=== PATIENT | male | born 1980 | race Two or more races ===

== ENCOUNTER 2023-07-20 17:38 | Inpatient (IN) | payer MEDICAID ==
[~2023-07-20] VITALS: Ht 180.3 cm; Wt 94.8 kg
[~2023-07-20 17:38] MED LIST: AMOX875T2 PO; IBUP-23 PO
[2023-07-20 18:14] LABS: BASOPHILS % (AUTO) 0.7 % (0.0-2.0); EOSINOPHILS % (AUTO) 0.2 % (0.0-6.0); HEMATOCRIT 44 % (39-51); HEMOGLOBIN 14.7 g/dL (13.5-17.5); LYMPHOCYTES % (AUTO) 17.6 % (20.0-44.0); MEAN CORPUSCULAR HEMOGLOBIN 27 PG (26.0-33.0); MEAN CORPUSCULAR HGB CONC 34 g/dl (31.0-36.0); MEAN CORPUSCULAR VOLUME 81 fL (80-96); MONOCYTES # (AUTO) 0.6 K/uL (0.1-1.30); MONOCYTES % (AUTO) 9.7 % (2.0-12.0); NEUTROPHILS # (AUTO) 4.1 K/uL (1.8-8.9); NEUTROPHILS % (AUTO) 71.8 % (43.0-81.0); PLATELET COUNT (AUTO) 146 K/uL (150-450); RED BLOOD CELL COUNT(AUTO) 5.41 MIL/uL (4.5-6.0); RED CELL DISTRIBUTION WIDTH 15.1 % (11.5-15.0); WHITE BLOOD COUNT (AUTO) 5.8 K/uL (4.3-11.0)
[2023-07-20] MEDS ORDERED: IOHEXOL-350 100 ML VIAL IV ONE (18:27)
[2023-07-20] MEDS ORDERED: IV NS 0.9% 250 ML IV ONE (18:27)
[2023-07-20 18:38] LABS: ALANINE AMINOTRANSFERASE 48 U/L (12-78); ALBUMIN 3.2 g/dL (3.4-5.0); ALKALINE PHOSPHATASE 53 U/L (46-116); ASPARTATE AMINOTRANSFERASE 26 U/L (15-37); BILIRUBIN,DIRECT 0.2 mg/dL (0.0-0.2); BILIRUBIN,TOTAL 1.1 mg/dL (0.2-1.0); CALCIUM, SERUM 8.5 mg/dL (8.5-10.1); CARBON DIOXIDE 29 mmol/L (21-32); CHLORIDE 99 mmol/L (98-107); CREATININE 1.5 mg/dL (0.6-1.3); GLUCOSE 94 mg/dL (74-106); NT-PRO BNP 864 pg/mL (0-125); POTASSIUM 3.8 mmol/L (3.5-5.1); SODIUM SERUM 136 mmol/L (136-145); TOTAL PROTEIN, SERUM 6.8 g/dL (6.4-8.2); UREA NITROGEN, BLOOD 25 mg/dL (7-18)
[2023-07-20] MEDS ORDERED: PIPERACILLIN /TAZOBACTAM 3.375 G in IV D5W 50 ML IV ONE (19:00)
[2023-07-20] MEDS ORDERED: ASPIRIN 325 MG TABLET PO ONE (19:00)
[2023-07-20] MEDS ORDERED: AZITHROMYCIN 500 MG in IV D5W 250 ML IV ONE (19:00)
[2023-07-20] MEDS ORDERED: VANCOMYCIN 1 GM in IV D5W 250 ML IV ONE (19:00)
[2023-07-20] MEDS ORDERED: ASPIRIN 325 MG TABLET ONE (19:15)
[2023-07-20] MEDS ORDERED: KETOROLAC TROMETHAMINE INJ 30 MG/ML VIAL IV PRN (22:30)
[2023-07-20] MEDS ORDERED: NITROGLYCERIN 0.4 MG/TAB BOTTLE SL PRN (22:30)
[2023-07-20] MEDS ORDERED: MAGNESIUM HYDROXIDE 30 ML UDC PO PRN (22:30)
[2023-07-20] MEDS ORDERED: Z GUARD REMEDY 4 OZ OINT TP PRN (22:30)
[2023-07-20] MEDS ORDERED: ONDANSETRON HCL/PF 4 MG/2 ML VIAL IVP PRN (22:30)
[2023-07-20] MEDS ORDERED: MORPHINE SULFATE INJ 4 MG/ML DISP.SYRIN IV PRN (22:30)
[2023-07-20] MEDS ORDERED: MAG HYDROX/AL HYDROX/SIMETH 30 ML UDC PO PRN (22:30)
[2023-07-20] MEDS ORDERED: ZOLPIDEM TARTRATE 5 MG TABLET PO PRN (22:30)
[2023-07-20] MEDS ORDERED: ACETAMINOPHEN 325 MG TABLET PO PRN (22:30)
[2023-07-20] MEDS: ENOXAPARIN SODIUM 40 MG/0.4 ML DISP.SYRIN SQ SCH (22:36)
[2023-07-20] MEDS ORDERED: CEFEPIME 1 GM in IV D5W 50 ML IV SCH (23:00)
[2023-07-20] MEDS ORDERED: CEFEPIME 1 GM VIAL ONE (23:39)
[2023-07-20 23:45] VITALS: BP 130/92; TEMP 97.6; O2SAT 96
[2023-07-21 04:00] VITALS: BP 124/89; TEMP 99.3; O2SAT 95
[2023-07-21 07:00] VITALS: BP 127/83; TEMP 99.9; O2SAT 96
[2023-07-21 07:08] LABS: BASOPHILS % (AUTO) 0.2 % (0.0-2.0); EOSINOPHILS % (AUTO) 0.2 % (0.0-6.0); HEMATOCRIT 43 % (39-51); HEMOGLOBIN 14.6 g/dL (13.5-17.5); LYMPHOCYTES # (AUTO) 0.8 K/uL (0.8-4.8); LYMPHOCYTES % (AUTO) 16.5 % (20.0-44.0); MEAN CORPUSCULAR HEMOGLOBIN 27 PG (26.0-33.0); MEAN CORPUSCULAR HGB CONC 34 g/dl (31.0-36.0); MEAN CORPUSCULAR VOLUME 80 fL (80-96); MONOCYTES # (AUTO) 0.4 K/uL (0.1-1.30); MONOCYTES % (AUTO) 8.5 % (2.0-12.0); NEUTROPHILS # (AUTO) 3.7 K/uL (1.8-8.9); NEUTROPHILS % (AUTO) 74.6 % (43.0-81.0); PLATELET COUNT (AUTO) 135 K/uL (150-450); RED BLOOD CELL COUNT(AUTO) 5.34 MIL/uL (4.5-6.0)
[2023-07-21 07:44] LABS: CALCIUM, SERUM 8.1 mg/dL (8.5-10.1); CREATININE 1.1 mg/dL (0.6-1.3); PHOSPHORUS 3.8 mg/dL (2.5-4.9); POTASSIUM 3.6 mmol/L (3.5-5.1); TOTAL PROTEIN, SERUM 6.6 g/dL (6.4-8.2)
[2023-07-21] MEDS: ASPIRIN EC 81 MG TABLET.DR PO SCH (08:49)
[2023-07-21] MEDS ORDERED: PANTOPRAZOLE 40 MG VIAL IV SCH (09:00)
[2023-07-21] MEDS: CARVEDILOL 3.125 MG TABLET PO SCH ×2 (09:52→21:09)
[2023-07-21] MEDS: POTASSIUM CHLORIDE 20 MEQ TAB.PRT.SR PO SCH ×3 (09:52→11:14)
[2023-07-21] MEDS: FUROSEMIDE 40 MG/4 ML VIAL IV SCH ×3 (09:55→17:09)
[2023-07-21] MEDS: CEFEPIME 1 GM in IV D5W 50 ML IV SCH ×2 (10:46→22:16)
[2023-07-21 11:27] VITALS: BP 133/89; TEMP 98.1; O2SAT 96
[2023-07-21 15:38] LABS: AMPHETAMINE, URINE NEGATIVE (NEGATIVE); BARBITURATE, URINE NEGATIVE (NEGATIVE); BENZODIAZEPINE, URINE NEGATIVE (NEGATIVE); CANNABINOID, URINE NEGATIVE (NEGATIVE); COCCAINE, URINE NEGATIVE (NEGATIVE); OPIATE, URINE NEGATIVE (NEGATIVE); PHENCYCLIDINE SCREEN,URINE NEGATIVE (NEGATIVE)
[2023-07-21 16:00] VITALS: BP 107/65; TEMP 97.5; O2SAT 97
[2023-07-21 20:00] VITALS: BP 128/98; TEMP 97.8; O2SAT 97
[2023-07-21] MEDS ORDERED: AZITHROMYCIN 500 MG in IV D5W 250 ML IV SCH (21:00)
[2023-07-21] MEDS: ENOXAPARIN SODIUM 40 MG/0.4 ML DISP.SYRIN SQ SCH (21:12)
[2023-07-21 23:46] VITALS: BP 109/78; TEMP 98.2; O2SAT 97
[2023-07-22 04:49] VITALS: BP 129/91; TEMP 98.2; O2SAT 96
[2023-07-22 07:00] VITALS: BP 129/94; TEMP 98.2; O2SAT 90
[2023-07-22 07:25] LABS: BASOPHILS % (AUTO) 0.3 % (0.0-2.0); EOSINOPHILS % (AUTO) 0.8 % (0.0-6.0); HEMATOCRIT 42 % (39-51); HEMOGLOBIN 14.8 g/dL (13.5-17.5); LYMPHOCYTES % (AUTO) 20.6 % (20.0-44.0); MEAN CORPUSCULAR HEMOGLOBIN 28 PG (26.0-33.0); MEAN CORPUSCULAR HGB CONC 35 g/dl (31.0-36.0); MEAN CORPUSCULAR VOLUME 79 fL (80-96); MONOCYTES # (AUTO) 0.4 K/uL (0.1-1.30); MONOCYTES % (AUTO) 8.7 % (2.0-12.0); NEUTROPHILS # (AUTO) 3.4 K/uL (1.8-8.9); NEUTROPHILS % (AUTO) 69.6 % (43.0-81.0); PLATELET COUNT (AUTO) 167 K/uL (150-450); RED BLOOD CELL COUNT(AUTO) 5.32 MIL/uL (4.5-6.0); RED CELL DISTRIBUTION WIDTH 14.9 % (11.5-15.0); WHITE BLOOD COUNT (AUTO) 4.9 K/uL (4.3-11.0)
[2023-07-22 08:15] LABS: BILIRUBIN,TOTAL 0.9 mg/dL (0.2-1.0); CALCIUM, SERUM 8.6 mg/dL (8.5-10.1); CREATININE 1.2 mg/dL (0.6-1.3); MAGNESIUM 2.4 mg/dL (1.8-2.4); PHOSPHORUS 4.2 mg/dL (2.5-4.9); POTASSIUM 3.4 mmol/L (3.5-5.1); TOTAL PROTEIN, SERUM 6.8 g/dL (6.4-8.2)
[2023-07-22] MEDS: FUROSEMIDE 40 MG/4 ML VIAL IV SCH ×3 (08:41→16:55)
[2023-07-22] MEDS: PANTOPRAZOLE 40 MG TABLET.DR PO SCH (08:41)
[2023-07-22] MEDS: POTASSIUM CHLORIDE 20 MEQ TAB.PRT.SR PO SCH ×3 (08:41→10:52)
[2023-07-22] MEDS: ASPIRIN EC 81 MG TABLET.DR PO SCH (08:41)
[2023-07-22] MEDS: CARVEDILOL 3.125 MG TABLET PO SCH ×2 (08:43→20:37)
[2023-07-22] MEDS: CEFEPIME 1 GM in IV D5W 50 ML IV SCH (10:52)
[2023-07-22 11:30] VITALS: BP 113/80; TEMP 92.7; O2SAT 90
[2023-07-22] MEDS ORDERED: LEVOFLOXACIN (250MG) 250 MG TABLET PO SCH (15:00)
[2023-07-22 16:00] VITALS: BP 129/94; TEMP 97.4; O2SAT 94
[2023-07-22] MEDS ORDERED: METOPROLOL TARTRATE INJ 5 MG/5 ML AMPUL ONE (16:23)
[2023-07-22] MEDS ORDERED: CT SWABBABLE VALVE TRANS SET 1 EA INFUS.SET MC ONE (16:25)
[2023-07-22] MEDS ORDERED: IOHEXOL-350 100 ML VIAL IV ONE (16:25)
[2023-07-22] MEDS ORDERED: IV NS 0.9% 250 ML IV ONE (16:25)
[2023-07-22] MEDS ORDERED: NITROGLYCERIN 0.4 MG/TAB BOTTLE ONE (16:26)
[2023-07-22 20:00] VITALS: BP 112/81; TEMP 97.9; O2SAT 99
[2023-07-22] MEDS: ENOXAPARIN SODIUM 40 MG/0.4 ML DISP.SYRIN SQ SCH (21:36)
[2023-07-23] VITALS: BP 115/83; TEMP 97.8; O2SAT 99
[2023-07-23 05:11] VITALS: BP 123/92; TEMP 98.6; O2SAT 95
[2023-07-23 06:46] LABS: BASOPHILS % (AUTO) 0.1 % (0.0-2.0); EOSINOPHILS # (AUTO) 0.1 K/uL (0.0-0.7); EOSINOPHILS % (AUTO) 1.1 % (0.0-6.0); HEMATOCRIT 44 % (39-51); HEMOGLOBIN 15.1 g/dL (13.5-17.5); LYMPHOCYTES # (AUTO) 1.1 K/uL (0.8-4.8); LYMPHOCYTES % (AUTO) 22.5 % (20.0-44.0); MEAN CORPUSCULAR HEMOGLOBIN 28 PG (26.0-33.0); MEAN CORPUSCULAR HGB CONC 35 g/dl (31.0-36.0); MEAN CORPUSCULAR VOLUME 79 fL (80-96); MONOCYTES # (AUTO) 0.5 K/uL (0.1-1.30); MONOCYTES % (AUTO) 9.7 % (2.0-12.0); NEUTROPHILS # (AUTO) 3.4 K/uL (1.8-8.9); NEUTROPHILS % (AUTO) 66.6 % (43.0-81.0); PLATELET COUNT (AUTO) 166 K/uL (150-450); RED CELL DISTRIBUTION WIDTH 14.7 % (11.5-15.0); WHITE BLOOD COUNT (AUTO) 5.1 K/uL (4.3-11.0)
[2023-07-23 07:35] LABS: BILIRUBIN,TOTAL 0.7 mg/dL (0.2-1.0); CALCIUM, SERUM 8.6 mg/dL (8.5-10.1); CREATININE 1.3 mg/dL (0.6-1.3); MAGNESIUM 2.3 mg/dL (1.8-2.4); PHOSPHORUS 4.3 mg/dL (2.5-4.9); POTASSIUM 3.4 mmol/L (3.5-5.1); TOTAL PROTEIN, SERUM 6.9 g/dL (6.4-8.2)
[2023-07-23 08:00] VITALS: BP 126/93; TEMP 97.9; O2SAT 94
[2023-07-23 09:36] VITALS: BP 126/93
[2023-07-23] MEDS: PANTOPRAZOLE 40 MG TABLET.DR PO SCH (09:36)
[2023-07-23] MEDS: CARVEDILOL 3.125 MG TABLET PO SCH (09:36)
[2023-07-23] MEDS: ASPIRIN EC 81 MG TABLET.DR PO SCH (09:36)
[2023-07-23] MEDS: POTASSIUM CHLORIDE 20 MEQ TAB.PRT.SR PO SCH ×3 (09:36→11:33)
[2023-07-23] MEDS ORDERED: POTASSIUM CHLORIDE 20 MEQ TAB.PRT.SR PO ONE (10:00)
== END 2023-07-23 14:00 | disposition left against medical advice (07) | DRG 194 ==
LOC: ER 17:38 → TELE 21:26 → MED 07-23 13:33
PROVIDERS: ADMIT Nurse Practitioner Acute Care; ATTEND Nurse Practitioner Family
DX: I11.0 Hypertensive heart disease with heart failure (principal); N17.0 Acute kidney failure with tubular necrosis; I21.A1 Myocardial infarction type 2; I31.39 Other pericardial effusion (noninflammatory); J18.9 Pneumonia, unspecified organism; I50.23 Acute on chronic systolic (congestive) heart failure; I42.9 Cardiomyopathy, unspecified; Z20.822 Contact with and (suspected) exposure to COVID-19; Z71.6 Tobacco abuse counseling; F17.210 Nicotine dependence, cigarettes, uncomplicated
CPT/HCPCS: 36415; 71045-TC; 75574; 80048-TC; 80053-TC; 80061-TC; 80076-TC; 82550-TC; 83735-TC; 83880; 84100-TC; 84484-TC; 85025-TC; 87040-TC; 87449; 93307-TC; A4223; C9113; G0378; J0456; J0692; J1650; J1940; J2543; J3370; J3490; J7050; J7060; Q9967

== ENCOUNTER 2023-10-08 00:04 | Emergency (ER) | payer SELFPAY ==
[~2023-10-08] VITALS: Ht 180.3 cm; Wt 95.3 kg
[2023-10-08 00:15] VITALS: TEMP 97.8
[2023-10-08] MEDS ORDERED: FLUORESCEIN SODIUM OPHTH 1 EA STRIP ONE (00:57)
[2023-10-08] MEDS ORDERED: TETRAcaine 5 ML BOTTLE ONE (00:58)
[2023-10-08] MEDS: TETRACAINE HCL 0.5% OPHTALMIC 15 ML BOTTLE OP ONE (01:20)
[2023-10-08] MEDS: FLUORESCEIN SODIUM OPHTH 1 EA STRIP OP ONE (01:20)
[2023-10-08] MEDS ORDERED: HYDROCODONE/APAP 5/325MG TABLET ONE (01:21)
[2023-10-08] MEDS: HYDROCODONE/APAP 5/325MG TABLET PO ONE (01:23)
[2023-10-08] MEDS ORDERED: ERYT3.5O9 EACHEYE (04:11)
[2023-10-08 04:27] VITALS: BP 148/84; O2SAT 99
== END 2023-10-08 04:27 | disposition home or self-care (01) ==
LOC: ER 00:06
DX: S05.01XA Injury of conjunctiva and corneal abrasion without foreign body, right eye, initial encounter (principal); T15.91XA Foreign body on external eye, part unspecified, right eye, initial encounter; F17.200 Nicotine dependence, unspecified, uncomplicated; Z90.89 Acquired absence of other organs; Z60.2 Problems related to living alone; X58.XXXA Exposure to other specified factors, initial encounter; Y93.89 Activity, other specified; Y92.89 Other specified places as the place of occurrence of the external cause; Y99.0 Civilian activity done for income or pay
CPT/HCPCS: 70480-TC

== ENCOUNTER 2024-01-01 02:00 | Inpatient (IN) | payer SELFPAY ==
[~2024-01-01] VITALS: Ht 180.3 cm; Wt 79.4 kg
[~2024-01-01 02:00] MED LIST changes: -AMOX875T2 PO; +ERYT3.5O9 EACHEYE; -IBUP-23 PO
[2024-01-01 02:51] LABS: BASOPHILS % (AUTO) 0.5 % (0.0-2.0); EOSINOPHILS # (AUTO) 0.1 K/uL (0.0-0.7); HEMATOCRIT 42 % (39-51); HEMOGLOBIN 14.3 g/dL (13.5-17.5); LYMPHOCYTES # (AUTO) 1.7 K/uL (0.8-4.8); LYMPHOCYTES % (AUTO) 21.7 % (20.0-44.0); MEAN CORPUSCULAR HEMOGLOBIN 28 PG (26.0-33.0); MEAN CORPUSCULAR HGB CONC 34 g/dl (31.0-36.0); MEAN CORPUSCULAR VOLUME 82 fL (80-96); MONOCYTES # (AUTO) 0.4 K/uL (0.1-1.30); MONOCYTES % (AUTO) 4.9 % (2.0-12.0); NEUTROPHILS # (AUTO) 5.6 K/uL (1.8-8.9); NEUTROPHILS % (AUTO) 71.9 % (43.0-81.0); PLATELET COUNT (AUTO) 123 K/uL (150-450); RED CELL DISTRIBUTION WIDTH 16.2 % (11.5-15.0); WHITE BLOOD COUNT (AUTO) 7.8 K/uL (4.3-11.0)
[2024-01-01 03:00] LABS: CARBON DIOXIDE 24 mmol/L (21-32); CHLORIDE 105 mmol/L (98-107); CREATININE 1.3 mg/dL (0.6-1.3); GLUCOSE 114 mg/dL (74-106); POTASSIUM 3.7 mmol/L (3.5-5.1); SODIUM SERUM 138 mmol/L (136-145); UREA NITROGEN, BLOOD 25 mg/dL (7-18)
[2024-01-01 03:02] LABS: INR 1.14 (0.91-1.10); PARTIAL THROMBOPLASTIN TIME 27.8 SEC (24.3-34.3)
[2024-01-01] MEDS ORDERED: CLONIDINE HCL 0.1 MG TABLET ONE (03:05)
[2024-01-01 03:12] LABS: ALANINE AMINOTRANSFERASE 106 U/L (12-78); ALBUMIN 2.9 g/dL (3.4-5.0); ALKALINE PHOSPHATASE 82 U/L (46-116); ASPARTATE AMINOTRANSFERASE 123 U/L (15-37); BILIRUBIN,DIRECT 0.3 mg/dL (0.0-0.2); BILIRUBIN,TOTAL 1.4 mg/dL (0.2-1.0); NT-PRO BNP 2480 pg/mL (0-125)
[2024-01-01] MEDS: CLONIDINE HCL 0.1 MG TABLET PO ONE (03:14)
[2024-01-01] MEDS ORDERED: ENOXAPARIN SODIUM 100 MG/ML DISP.SYRIN SQ ONE (03:24)
[2024-01-01] MEDS: ENOXAPARIN SODIUM 100 MG/ML DISP.SYRIN SQ ONE (03:27)
[2024-01-01] MEDS ORDERED: ENALAPRILAT INJ (1.25 MG/ML) 1.25 MG/ML VIAL IV ONE (03:46)
[2024-01-01] MEDS ORDERED: FUROSEMIDE 40 MG TABLET ONE (03:46)
[2024-01-01] MEDS: FUROSEMIDE 40 MG/4 ML VIAL IV ONE (03:56)
[2024-01-01] MEDS: ENALAPRILAT INJ (1.25 MG/ML) 1.25 MG/ML VIAL IV STA (03:56)
[2024-01-01] MEDS ORDERED: ACETAMINOPHEN 325 MG TABLET PO PRN (04:30)
[2024-01-01] MEDS ORDERED: MAG HYDROX/AL HYDROX/SIMETH 30 ML UDC PO PRN (04:30)
[2024-01-01] MEDS ORDERED: MAGNESIUM HYDROXIDE 30 ML UDC PO PRN (04:30)
[2024-01-01] MEDS ORDERED: Z GUARD REMEDY 4 OZ OINT TP PRN (04:30)
[2024-01-01] MEDS ORDERED: ZOLPIDEM TARTRATE 5 MG TABLET PO PRN (04:30)
[2024-01-01] MEDS ORDERED: ONDANSETRON HCL/PF 4 MG/2 ML VIAL IVP PRN (04:30)
[2024-01-01] MEDS ORDERED: NITROGLYCERIN 0.4 MG/TAB BOTTLE SL PRN (04:30)
[2024-01-01 04:31] VITALS: BP 150/110; TEMP 97.9; O2SAT 97
[2024-01-01 05:29] LABS: BARBITURATE, URINE NEGATIVE (NEGATIVE); BENZODIAZEPINE, URINE NEGATIVE (NEGATIVE); COCCAINE, URINE NEGATIVE (NEGATIVE); OPIATE, URINE NEGATIVE (NEGATIVE); PHENCYCLIDINE SCREEN,URINE NEGATIVE (NEGATIVE)
[2024-01-01 05:32] LABS: AMPHETAMINE, URINE POSITIVE (NEGATIVE); CANNABINOID, URINE POSITIVE (NEGATIVE)
[2024-01-01 06:57] LABS: BASOPHILS % (AUTO) 0.4 % (0.0-2.0); EOSINOPHILS # (AUTO) 0.1 K/uL (0.0-0.7); EOSINOPHILS % (AUTO) 0.7 % (0.0-6.0); HEMATOCRIT 44 % (39-51); HEMOGLOBIN 15.2 g/dL (13.5-17.5); LYMPHOCYTES # (AUTO) 1.5 K/uL (0.8-4.8); MEAN CORPUSCULAR HEMOGLOBIN 28 PG (26.0-33.0); MEAN CORPUSCULAR HGB CONC 34 g/dl (31.0-36.0); MEAN CORPUSCULAR VOLUME 81 fL (80-96); MONOCYTES # (AUTO) 0.6 K/uL (0.1-1.30); MONOCYTES % (AUTO) 6.4 % (2.0-12.0); NEUTROPHILS # (AUTO) 6.5 K/uL (1.8-8.9); NEUTROPHILS % (AUTO) 75.5 % (43.0-81.0); PLATELET COUNT (AUTO) 132 K/uL (150-450); RED BLOOD CELL COUNT(AUTO) 5.47 MIL/uL (4.5-6.0); RED CELL DISTRIBUTION WIDTH 16.2 % (11.5-15.0); WHITE BLOOD COUNT (AUTO) 8.6 K/uL (4.3-11.0)
[2024-01-01 07:00] VITALS: BP 150/85; TEMP 98.2; O2SAT 92
[2024-01-01 07:24] LABS: ALBUMIN 3.4 g/dL (3.4-5.0); BILIRUBIN,DIRECT 0.3 mg/dL (0.0-0.2); BILIRUBIN,TOTAL 1.8 mg/dL (0.2-1.0); CALCIUM, SERUM 9.4 mg/dL (8.5-10.1); CREATININE 1.3 mg/dL (0.6-1.3); MAGNESIUM 2.2 mg/dL (1.8-2.4); PHOSPHORUS 4.1 mg/dL (2.5-4.9); POTASSIUM 3.5 mmol/L (3.5-5.1); TOTAL PROTEIN, SERUM 6.8 g/dL (6.4-8.2)
[2024-01-01 07:30] VITALS: BP 146/100; TEMP 98.3; O2SAT 93
[2024-01-01] MEDS: PANTOPRAZOLE 40 MG TABLET.DR PO SCH (08:17)
[2024-01-01 08:23] LABS: THYROID STIMULATING HORMONE 1.9 uIU/mL (0.358-3.74)
[2024-01-01 16:00] VITALS: BP 150/88; TEMP 97.3; O2SAT 96
[2024-01-01] MEDS: LOSARTAN POTASSIUM 25 MG TABLET PO SCH (17:35)
[2024-01-01] MEDS: CARVEDILOL 3.125 MG TABLET PO SCH (17:36)
[2024-01-01] MEDS: FUROSEMIDE 20 MG/2 ML VIAL IV SCH (17:36)
[2024-01-01 20:00] VITALS: BP 150/85; TEMP 98.2; O2SAT 92
[2024-01-02] VITALS: BP 144/102; TEMP 98.1; O2SAT 93
[2024-01-02] MEDS: ENOXAPARIN SODIUM 40 MG/0.4 ML DISP.SYRIN SQ SCH (03:10)
[2024-01-02 04:00] VITALS: BP 135/87; TEMP 98.1; O2SAT 97
[2024-01-02 08:00] VITALS: BP 145/103; TEMP 98.1; O2SAT 96
[2024-01-02 08:12] VITALS: BP 145/103
[2024-01-02] MEDS ORDERED: LOSA25TA27 PO (14:04)
[2024-01-02] MEDS ORDERED: CARV3.122 PO (14:04)
[2024-01-02] MEDS ORDERED: FURO-144 PO (14:04)
== END 2024-01-02 15:33 | disposition home or self-care (01) | DRG 280 ==
LOC: ER 02:02 → TELE 04:04
DX: I11.0 Hypertensive heart disease with heart failure (principal); I50.23 Acute on chronic systolic (congestive) heart failure; I21.4 Non-ST elevation (NSTEMI) myocardial infarction; Z91.199 Patient's noncompliance with other medical treatment and regimen due to unspecified reason; F17.210 Nicotine dependence, cigarettes, uncomplicated; Z71.6 Tobacco abuse counseling; F12.10 Cannabis abuse, uncomplicated; F15.10 Other stimulant abuse, uncomplicated; E80.6 Other disorders of bilirubin metabolism
CPT/HCPCS: 36415; 71045-TC; 80048-TC; 80076-TC; 83735-TC; 83880; 84100-TC; 84443-TC; 84484-TC; 85025-TC; 85730-TC; 93307-TC; G0378; J1650; J1940; J3490

== ENCOUNTER 2024-04-12 05:44 | Inpatient (IN) | payer OTHER ==
[~2024-04-12] VITALS: Ht 172.7 cm; Wt 96.6 kg
[~2024-04-12 05:44] MED LIST changes: +CARV3.122 PO; -ERYT3.5O9 EACHEYE; +FURO-144 PO; +LOSA25TA27 PO
[2024-04-12] MEDS ORDERED: ENALAPRILAT INJ (1.25 MG/ML) 1.25 MG/ML VIAL IV ONE (06:49)
[2024-04-12] MEDS ORDERED: NITROGLYCERIN 0.4 MG/TAB BOTTLE ONE (06:49)
[2024-04-12] MEDS ORDERED: FUROSEMIDE 40 MG/4 ML VIAL ONE (06:49)
[2024-04-12 06:54] LABS: BASOPHILS # (AUTO) 0.1 K/uL (0.0-0.2); BASOPHILS % (AUTO) 0.8 % (0.0-2.0); EOSINOPHILS # (AUTO) 0.1 K/uL (0.0-0.7); EOSINOPHILS % (AUTO) 1.3 % (0.0-6.0); HEMATOCRIT 41 % (39-51); HEMOGLOBIN 13.8 g/dL (13.5-17.5); LYMPHOCYTES # (AUTO) 1.8 K/uL (0.8-4.8); LYMPHOCYTES % (AUTO) 19.3 % (20.0-44.0); MEAN CORPUSCULAR HEMOGLOBIN 28 PG (26.0-33.0); MEAN CORPUSCULAR HGB CONC 34 g/dl (31.0-36.0); MEAN CORPUSCULAR VOLUME 83 fL (80-96); MONOCYTES # (AUTO) 0.6 K/uL (0.1-1.30); MONOCYTES % (AUTO) 6.1 % (2.0-12.0); NEUTROPHILS # (AUTO) 6.6 K/uL (1.8-8.9); NEUTROPHILS % (AUTO) 72.5 % (43.0-81.0); PLATELET COUNT (AUTO) 144 K/uL (150-450); RED BLOOD CELL COUNT(AUTO) 4.94 MIL/uL (4.5-6.0); RED CELL DISTRIBUTION WIDTH 16.1 % (11.5-15.0); WHITE BLOOD COUNT (AUTO) 9.1 K/uL (4.3-11.0)
[2024-04-12] MEDS: NITROGLYCERIN 0.4 MG/TAB BOTTLE SL ONE (06:58)
[2024-04-12 07:03] LABS: CALCIUM, SERUM 8.4 mg/dL (8.5-10.1); CARBON DIOXIDE 24 mmol/L (21-32); CHLORIDE 107 mmol/L (98-107); GLUCOSE 119 mg/dL (74-106); POTASSIUM 3.7 mmol/L (3.5-5.1); SODIUM SERUM 141 mmol/L (136-145); UREA NITROGEN, BLOOD 24 mg/dL (7-18)
[2024-04-12 07:06] LABS: INR 1.24 (0.91-1.10); PARTIAL THROMBOPLASTIN TIME 26.4 SEC (24.3-34.3)
[2024-04-12] MEDS: FUROSEMIDE 40 MG/4 ML VIAL IV ONE (07:15)
[2024-04-12] MEDS: ENALAPRILAT DIHYD. (2.5MG/2ML) 1.25 MG/ML VIAL IV ONE (07:16)
[2024-04-12 07:18] LABS: ALANINE AMINOTRANSFERASE 33 U/L (12-78); ALBUMIN 3.1 g/dL (3.4-5.0); ALKALINE PHOSPHATASE 60 U/L (46-116); ASPARTATE AMINOTRANSFERASE 23 U/L (15-37); BILIRUBIN,DIRECT 0.4 mg/dL (0.0-0.2); BILIRUBIN,TOTAL 2.4 mg/dL (0.2-1.0); NT-PRO BNP 4759 pg/mL (0-125); TOTAL PROTEIN, SERUM 5.9 g/dL (6.4-8.2)
[2024-04-12] MEDS ORDERED: ENOXAPARIN SODIUM 100 MG/ML DISP.SYRIN SQ ONE (07:27)
[2024-04-12] MEDS: ENOXAPARIN SODIUM 100 MG/ML DISP.SYRIN SQ ONE (07:34)
[2024-04-12] MEDS ORDERED: Z GUARD REMEDY 4 OZ OINT TP PRN (10:00)
[2024-04-12] MEDS ORDERED: MAGNESIUM HYDROXIDE 30 ML UDC PO PRN (10:00)
[2024-04-12] MEDS ORDERED: MAG HYDROX/AL HYDROX/SIMETH 30 ML UDC PO PRN (10:00)
[2024-04-12] MEDS ORDERED: ONDANSETRON HCL/PF 4 MG/2 ML VIAL IVP PRN (10:00)
[2024-04-12] MEDS ORDERED: ENOXAPARIN SODIUM 40 MG/0.4 ML DISP.SYRIN SQ SCH (10:00)
[2024-04-12] MEDS ORDERED: ACETAMINOPHEN 325 MG TABLET PO PRN (10:00)
[2024-04-12] MEDS ORDERED: ASPIRIN 81 MG TAB.CHEW ONE (10:29)
[2024-04-12] MEDS: ASPIRIN 81 MG TAB.CHEW PO SCH (10:30)
[2024-04-12] MEDS: FUROSEMIDE 40 MG/4 ML VIAL IV SCH (12:03)
[2024-04-12] MEDS ORDERED: FUROSEMIDE 40 MG/4 ML VIAL IV SCH (17:00)
[2024-04-12 20:00] VITALS: BP 157/105; TEMP 98.5; O2SAT 93
[2024-04-12] MEDS: KETOROLAC TROMETHAMINE INJ 30 MG/ML VIAL IV ONE (23:36)
[2024-04-13] VITALS: BP 158/110; TEMP 98.1; O2SAT 97
[2024-04-13 04:00] VITALS: BP 136/103; TEMP 98.4; O2SAT 94
[2024-04-13 06:02] LABS: BASOPHILS % (AUTO) 0.5 % (0.0-2.0); EOSINOPHILS # (AUTO) 0.1 K/uL (0.0-0.7); EOSINOPHILS % (AUTO) 1.3 % (0.0-6.0); HEMATOCRIT 42 % (39-51); HEMOGLOBIN 14.3 g/dL (13.5-17.5); LYMPHOCYTES # (AUTO) 1.7 K/uL (0.8-4.8); LYMPHOCYTES % (AUTO) 22.3 % (20.0-44.0); MEAN CORPUSCULAR HEMOGLOBIN 28 PG (26.0-33.0); MEAN CORPUSCULAR HGB CONC 34 g/dl (31.0-36.0); MEAN CORPUSCULAR VOLUME 82 fL (80-96); MONOCYTES # (AUTO) 0.6 K/uL (0.1-1.30); MONOCYTES % (AUTO) 7.5 % (2.0-12.0); NEUTROPHILS # (AUTO) 5.2 K/uL (1.8-8.9); NEUTROPHILS % (AUTO) 68.4 % (43.0-81.0); PLATELET COUNT (AUTO) 123 K/uL (150-450); RED BLOOD CELL COUNT(AUTO) 5.13 MIL/uL (4.5-6.0); WHITE BLOOD COUNT (AUTO) 7.7 K/uL (4.3-11.0)
[2024-04-13 06:14] LABS: CALCIUM, SERUM 8.7 mg/dL (8.5-10.1); CREATININE 1.1 mg/dL (0.6-1.3); MAGNESIUM 1.8 mg/dL (1.8-2.4); PHOSPHORUS 4.3 mg/dL (2.5-4.9); POTASSIUM 3.3 mmol/L (3.5-5.1)
[2024-04-13 08:00] VITALS: BP 161/124; TEMP 98.6; O2SAT 100
[2024-04-13] MEDS: ENOXAPARIN SODIUM 40 MG/0.4 ML DISP.SYRIN SQ SCH (08:05)
[2024-04-13] MEDS: POTASSIUM CHLORIDE 20 MEQ POWDER PACKET GT ONE (10:51)
[2024-04-13] MEDS: VALSARTAN 80 MG TABLET PO SCH (10:51)
[2024-04-13 12:00] VITALS: BP 142/113; TEMP 97.5; O2SAT 97
[2024-04-13 16:00] VITALS: BP 154/116; TEMP 97.7; O2SAT 99
[2024-04-13 16:45] VITALS: BP 148/100
[2024-04-14] MEDS: CLONIDINE HCL 0.1 MG TABLET PO PRN (00:14)
[2024-04-14 08:00] VITALS: BP 146/117; TEMP 97.5; O2SAT 100
[2024-04-14 09:01] LABS: BASOPHILS % (AUTO) 0.5 % (0.0-2.0); EOSINOPHILS # (AUTO) 0.1 K/uL (0.0-0.7); EOSINOPHILS % (AUTO) 1.5 % (0.0-6.0); HEMATOCRIT 42 % (39-51); LYMPHOCYTES # (AUTO) 1.4 K/uL (0.8-4.8); LYMPHOCYTES % (AUTO) 16.5 % (20.0-44.0); MEAN CORPUSCULAR HEMOGLOBIN 28 PG (26.0-33.0); MEAN CORPUSCULAR HGB CONC 34 g/dl (31.0-36.0); MEAN CORPUSCULAR VOLUME 82 fL (80-96); MONOCYTES # (AUTO) 0.5 K/uL (0.1-1.30); MONOCYTES % (AUTO) 5.7 % (2.0-12.0); NEUTROPHILS # (AUTO) 6.3 K/uL (1.8-8.9); NEUTROPHILS % (AUTO) 75.8 % (43.0-81.0); PLATELET COUNT (AUTO) 133 K/uL (150-450); RED BLOOD CELL COUNT(AUTO) 5.06 MIL/uL (4.5-6.0); RED CELL DISTRIBUTION WIDTH 15.8 % (11.5-15.0); WHITE BLOOD COUNT (AUTO) 8.3 K/uL (4.3-11.0)
[2024-04-14 09:35] LABS: CALCIUM, SERUM 8.3 mg/dL (8.5-10.1); CREATININE 1.2 mg/dL (0.6-1.3); POTASSIUM 3.2 mmol/L (3.5-5.1)
[2024-04-14 12:00] VITALS: BP 145/98; TEMP 97.4; O2SAT 99
[2024-04-14 16:00] VITALS: BP 133/95; TEMP 97.2; O2SAT 99
[2024-04-14 20:00] VITALS: BP 133/84; TEMP 98.8; O2SAT 95
[2024-04-14] MEDS: POTASSIUM CHLORIDE 20 MEQ POWDER PACKET PO ONE (23:16)
[2024-04-15] VITALS: BP 145/94; TEMP 98.3; O2SAT 100
[2024-04-15] MEDS: ZOLPIDEM TARTRATE 5 MG TABLET PO ONE (03:11)
[2024-04-15 04:00] VITALS: BP 137/91; TEMP 98.2; O2SAT 100
[2024-04-15 06:32] LABS: BASOPHILS % (AUTO) 0.4 % (0.0-2.0); EOSINOPHILS # (AUTO) 0.1 K/uL (0.0-0.7); EOSINOPHILS % (AUTO) 1.1 % (0.0-6.0); HEMATOCRIT 44 % (39-51); HEMOGLOBIN 14.8 g/dL (13.5-17.5); LYMPHOCYTES # (AUTO) 1.8 K/uL (0.8-4.8); LYMPHOCYTES % (AUTO) 19.2 % (20.0-44.0); MEAN CORPUSCULAR HEMOGLOBIN 28 PG (26.0-33.0); MEAN CORPUSCULAR HGB CONC 34 g/dl (31.0-36.0); MEAN CORPUSCULAR VOLUME 82 fL (80-96); MONOCYTES # (AUTO) 0.7 K/uL (0.1-1.30); MONOCYTES % (AUTO) 7.9 % (2.0-12.0); NEUTROPHILS # (AUTO) 6.5 K/uL (1.8-8.9); NEUTROPHILS % (AUTO) 71.4 % (43.0-81.0); PLATELET COUNT (AUTO) 142 K/uL (150-450); RED BLOOD CELL COUNT(AUTO) 5.33 MIL/uL (4.5-6.0); RED CELL DISTRIBUTION WIDTH 15.4 % (11.5-15.0); WHITE BLOOD COUNT (AUTO) 9.2 K/uL (4.3-11.0)
[2024-04-15 07:07] LABS: CALCIUM, SERUM 9.1 mg/dL (8.5-10.1); CREATININE 1.1 mg/dL (0.6-1.3); POTASSIUM 3.4 mmol/L (3.5-5.1)
[2024-04-15 08:00] VITALS: BP_SYST 135; BP_SYST 137; BP_DIAS 97; TEMP 97.7; O2SAT 97
[2024-04-15 08:20] VITALS: BP 135/85
[2024-04-15] MEDS: POTASSIUM CHLORIDE 20 MEQ TAB.PRT.SR PO SCH (12:28)
[2024-04-15] MEDS ORDERED: FUROSEMIDE 40 MG TABLET PO SCH (13:00)
[2024-04-15] MEDS ORDERED: EMPA10TA PO (13:31)
[2024-04-15] MEDS ORDERED: FURO-144 PO (13:31)
[2024-04-15] MEDS ORDERED: VALS80TA31 PO (13:31)
[2024-04-15] MEDS ORDERED: ASPI-1169 PO (13:31)
== END 2024-04-15 15:44 | disposition home or self-care (01) | DRG 194 ==
LOC: ER 05:56 → TELE1 10:40 → MEDSG1 04-15 10:36
PROVIDERS: ADMIT Internal Medicine
DX: I11.0 Hypertensive heart disease with heart failure (principal); J96.01 Acute respiratory failure with hypoxia; I21.A1 Myocardial infarction type 2; I50.23 Acute on chronic systolic (congestive) heart failure; E44.0 Moderate protein-calorie malnutrition; I42.8 Other cardiomyopathies; F15.10 Other stimulant abuse, uncomplicated; E88.09 Other disorders of plasma-protein metabolism, not elsewhere classified; F17.210 Nicotine dependence, cigarettes, uncomplicated; Z68.32 Body mass index [BMI] 32.0-32.9, adult; Z91.199 Patient's noncompliance with other medical treatment and regimen due to unspecified reason; Z71.51 Drug abuse counseling and surveillance of drug abuser
CPT/HCPCS: 36415; 71045-TC; 80048-TC; 80076-TC; 83735-TC; 83880; 84100-TC; 84484-TC; 85025-TC; 85730-TC; 93307-TC; G0378; J1650; J1885; J1940; J3490

== ENCOUNTER 2024-09-11 19:52 | Inpatient (IN) | payer OTHER ==
[~2024-09-11] VITALS: Ht 180.3 cm; Wt 95.7 kg
[~2024-09-11 19:52] MED LIST changes: +ASPI-1169 PO; -CARV3.122 PO; +EMPA10TA PO; -LOSA25TA27 PO; +VALS80TA31 PO
[2024-09-11] MEDS ORDERED: FUROSEMIDE 40 MG/4 ML VIAL ONE (20:36)
[2024-09-11] MEDS: FUROSEMIDE 40 MG/4 ML VIAL IV ONE (20:42)
[2024-09-11 20:48] LABS: BASOPHILS # (AUTO) 0.1 K/uL (0.0-0.2); BASOPHILS % (AUTO) 0.7 % (0.0-2.0); EOSINOPHILS # (AUTO) 0.1 K/uL (0.0-0.7); EOSINOPHILS % (AUTO) 1.2 % (0.0-6.0); HEMATOCRIT 41 % (39-51); HEMOGLOBIN 13.6 g/dL (13.5-17.5); LYMPHOCYTES # (AUTO) 1.7 K/uL (0.8-4.8); MEAN CORPUSCULAR HEMOGLOBIN 26 PG (26.0-33.0); MEAN CORPUSCULAR HGB CONC 33 g/dl (31.0-36.0); MEAN CORPUSCULAR VOLUME 80 fL (80-96); MONOCYTES # (AUTO) 0.6 K/uL (0.1-1.30); NEUTROPHILS # (AUTO) 6.8 K/uL (1.8-8.9); NEUTROPHILS % (AUTO) 74.1 % (43.0-81.0); PLATELET COUNT (AUTO) 160 K/uL (150-450); RED BLOOD CELL COUNT(AUTO) 5.19 MIL/uL (4.5-6.0); RED CELL DISTRIBUTION WIDTH 16.2 % (11.5-15.0); WHITE BLOOD COUNT (AUTO) 9.2 K/uL (4.3-11.0)
[2024-09-11 21:00] LABS: CALCIUM, SERUM 8.9 mg/dL (8.5-10.1); CARBON DIOXIDE 32 mmol/L (21-32); CHLORIDE 104 mmol/L (98-107); CREATININE 1.4 mg/dL (0.6-1.3); GLUCOSE 103 mg/dL (74-106); POTASSIUM 4.1 mmol/L (3.5-5.1); SODIUM SERUM 143 mmol/L (136-145); UREA NITROGEN, BLOOD 30 mg/dL (7-18)
[2024-09-11 21:13] LABS: NT-PRO BNP 3860 pg/mL (0-125)
[2024-09-11] MEDS: ASPIRIN EC 325 MG TABLET.DR PO ONE (21:41)
[2024-09-11] MEDS ORDERED: Z GUARD REMEDY 4 OZ OINT TP PRN (23:30)
[2024-09-11] MEDS ORDERED: ONDANSETRON HCL/PF 4 MG/2 ML VIAL IVP PRN (23:30)
[2024-09-11] MEDS ORDERED: MAGNESIUM HYDROXIDE 30 ML UDC PO PRN (23:30)
[2024-09-11] MEDS ORDERED: ACETAMINOPHEN 325 MG TABLET PO PRN (23:30)
[2024-09-11] MEDS ORDERED: ZOLPIDEM TARTRATE 5 MG TABLET PO PRN (23:30)
[2024-09-11] MEDS ORDERED: MAG HYDROX/AL HYDROX/SIMETH 30 ML UDC PO PRN (23:30)
[2024-09-12 04:00] VITALS: BP 139/98; TEMP 98; O2SAT 99
[2024-09-12 07:54] LABS: BASOPHILS % (AUTO) 0.4 % (0.0-2.0); EOSINOPHILS # (AUTO) 0.1 K/uL (0.0-0.7); EOSINOPHILS % (AUTO) 1.7 % (0.0-6.0); HEMATOCRIT 41 % (39-51); HEMOGLOBIN 13.6 g/dL (13.5-17.5); LYMPHOCYTES # (AUTO) 1.9 K/uL (0.8-4.8); LYMPHOCYTES % (AUTO) 24.3 % (20.0-44.0); MEAN CORPUSCULAR HEMOGLOBIN 26 PG (26.0-33.0); MEAN CORPUSCULAR HGB CONC 33 g/dl (31.0-36.0); MEAN CORPUSCULAR VOLUME 79 fL (80-96); MONOCYTES # (AUTO) 0.4 K/uL (0.1-1.30); MONOCYTES % (AUTO) 5.6 % (2.0-12.0); NEUTROPHILS # (AUTO) 5.4 K/uL (1.8-8.9); PLATELET COUNT (AUTO) 162 K/uL (150-450); RED BLOOD CELL COUNT(AUTO) 5.18 MIL/uL (4.5-6.0); RED CELL DISTRIBUTION WIDTH 16.2 % (11.5-15.0)
[2024-09-12 08:00] VITALS: BP 151/99; TEMP 98.2; O2SAT 99
[2024-09-12 08:14] LABS: CALCIUM, SERUM 8.8 mg/dL (8.5-10.1); CREATININE 1.2 mg/dL (0.6-1.3); MAGNESIUM 2.1 mg/dL (1.8-2.4); PHOSPHORUS 3.8 mg/dL (2.5-4.9); POTASSIUM 3.6 mmol/L (3.5-5.1)
[2024-09-12] MEDS: EMPAGLIFLOZIN 10 MG TABLET PO SCH (08:33)
[2024-09-12] MEDS: ASPIRIN 81 MG TAB.CHEW PO SCH (08:33)
[2024-09-12] MEDS: FUROSEMIDE 40 MG/4 ML VIAL IV SCH ×2 (08:34→17:12)
[2024-09-12] MEDS: ENOXAPARIN SODIUM 40 MG/0.4 ML DISP.SYRIN SQ SCH (08:35)
[2024-09-12] MEDS: PANTOPRAZOLE 40 MG TABLET.DR PO SCH (08:37)
[2024-09-12 10:30] LABS: THYROID STIMULATING HORMONE 3.18 uIU/mL (0.358-3.74)
[2024-09-12 12:00] VITALS: BP 149/100; TEMP 98; O2SAT 96
[2024-09-12 16:00] VITALS: BP 158/110; TEMP 97.5; O2SAT 96
[2024-09-12] MEDS: SPIRONOLACTONE 25 MG TABLET PO SCH (17:12)
[2024-09-12 20:00] VITALS: BP 144/109; TEMP 98.1; O2SAT 97
[2024-09-12] MEDS: VALSARTAN 40 MG TABLET PO SCH (21:36)
[2024-09-13] VITALS: BP 144/109; TEMP 98.1; O2SAT 97
[2024-09-13 04:00] VITALS: BP 157/112; TEMP 97.2; O2SAT 97
[2024-09-13 08:00] VITALS: BP 149/110; TEMP 97.7; O2SAT 97
[2024-09-13 08:43] VITALS: BP 149/110
[2024-09-13 08:59] LABS: BASOPHILS # (AUTO) 0.1 K/uL (0.0-0.2); BASOPHILS % (AUTO) 0.7 % (0.0-2.0); EOSINOPHILS # (AUTO) 0.1 K/uL (0.0-0.7); EOSINOPHILS % (AUTO) 1.4 % (0.0-6.0); HEMATOCRIT 44 % (39-51); HEMOGLOBIN 14.4 g/dL (13.5-17.5); LYMPHOCYTES # (AUTO) 1.7 K/uL (0.8-4.8); LYMPHOCYTES % (AUTO) 21.3 % (20.0-44.0); MEAN CORPUSCULAR HEMOGLOBIN 26 PG (26.0-33.0); MEAN CORPUSCULAR HGB CONC 33 g/dl (31.0-36.0); MEAN CORPUSCULAR VOLUME 79 fL (80-96); MONOCYTES # (AUTO) 0.4 K/uL (0.1-1.30); MONOCYTES % (AUTO) 5.5 % (2.0-12.0); NEUTROPHILS # (AUTO) 5.6 K/uL (1.8-8.9); NEUTROPHILS % (AUTO) 71.1 % (43.0-81.0); PLATELET COUNT (AUTO) 166 K/uL (150-450); RED BLOOD CELL COUNT(AUTO) 5.64 MIL/uL (4.5-6.0); WHITE BLOOD COUNT (AUTO) 7.9 K/uL (4.3-11.0)
[2024-09-13 09:29] LABS: ALBUMIN 3.4 g/dL (3.4-5.0); BILIRUBIN,TOTAL 2.3 mg/dL (0.2-1.0); CALCIUM, SERUM 9.1 mg/dL (8.5-10.1); CREATININE 1.5 mg/dL (0.6-1.3); MAGNESIUM 2.3 mg/dL (1.8-2.4); PHOSPHORUS 4.6 mg/dL (2.5-4.9); POTASSIUM 3.8 mmol/L (3.5-5.1); TOTAL PROTEIN, SERUM 6.8 g/dL (6.4-8.2)
[2024-09-15 08:07] LABS: PTH, INTACT 38 pg/mL (15-65)
== END 2024-09-13 15:47 | disposition left against medical advice (07) | DRG 194 ==
LOC: ER 19:58 → TELE1 09-12 00:49 → MEDSG1 09-13 14:18
PROVIDERS: ADMIT Student in an Organized Health Care Education/Training Program; ATTEND Nurse Practitioner Family
DX: I11.0 Hypertensive heart disease with heart failure (principal); N17.0 Acute kidney failure with tubular necrosis; I21.A1 Myocardial infarction type 2; I50.23 Acute on chronic systolic (congestive) heart failure; Z91.199 Patient's noncompliance with other medical treatment and regimen due to unspecified reason; E66.9 Obesity, unspecified; F15.10 Other stimulant abuse, uncomplicated; F17.210 Nicotine dependence, cigarettes, uncomplicated; E83.9 Disorder of mineral metabolism, unspecified; Z68.29 Body mass index [BMI] 29.0-29.9, adult; I42.8 Other cardiomyopathies; Z79.82 Long term (current) use of aspirin; R73.9 Hyperglycemia, unspecified
CPT/HCPCS: 36415; 71045-TC; 80048-TC; 80053-TC; 82550-TC; 83735-TC; 83880; 83970; 84100-TC; 84155; 84165; 84443-TC; 84484-TC; 85025-TC; 93307-TC; G0378; J1650; J1940

== ENCOUNTER 2024-09-16 16:58 | Inpatient (IN) | payer OTHER ==
[~2024-09-16] VITALS: Ht 180.3 cm; Wt 98.4 kg
[2024-09-16 18:31] LABS: BASOPHILS # (AUTO) 0.1 K/uL (0.0-0.2); BASOPHILS % (AUTO) 0.8 % (0.0-2.0); EOSINOPHILS # (AUTO) 0.1 K/uL (0.0-0.7); EOSINOPHILS % (AUTO) 1.5 % (0.0-6.0); HEMATOCRIT 43 % (39-51); HEMOGLOBIN 14.2 g/dL (13.5-17.5); LYMPHOCYTES # (AUTO) 0.9 K/uL (0.8-4.8); LYMPHOCYTES % (AUTO) 9.3 % (20.0-44.0); MEAN CORPUSCULAR HEMOGLOBIN 26 PG (26.0-33.0); MEAN CORPUSCULAR HGB CONC 33 g/dl (31.0-36.0); MEAN CORPUSCULAR VOLUME 80 fL (80-96); MONOCYTES # (AUTO) 0.7 K/uL (0.1-1.30); MONOCYTES % (AUTO) 7.2 % (2.0-12.0); NEUTROPHILS # (AUTO) 8.2 K/uL (1.8-8.9); NEUTROPHILS % (AUTO) 81.2 % (43.0-81.0); PLATELET COUNT (AUTO) 156 K/uL (150-450); RED BLOOD CELL COUNT(AUTO) 5.43 MIL/uL (4.5-6.0); RED CELL DISTRIBUTION WIDTH 16.1 % (11.5-15.0); WHITE BLOOD COUNT (AUTO) 10.1 K/uL (4.3-11.0)
[2024-09-16] MEDS: FUROSEMIDE 40 MG/4 ML VIAL IV ONE (18:38)
[2024-09-16 18:50] LABS: CALCIUM, SERUM 8.8 mg/dL (8.5-10.1); CARBON DIOXIDE 30 mmol/L (21-32); CHLORIDE 104 mmol/L (98-107); CREATININE 1.6 mg/dL (0.6-1.3); GLUCOSE 99 mg/dL (74-106); POTASSIUM 4.3 mmol/L (3.5-5.1); SODIUM SERUM 139 mmol/L (136-145); UREA NITROGEN, BLOOD 27 mg/dL (7-18)
[2024-09-16 19:02] LABS: ALANINE AMINOTRANSFERASE 23 U/L (12-78); ALBUMIN 3.7 g/dL (3.4-5.0); ALKALINE PHOSPHATASE 76 U/L (46-116); ASPARTATE AMINOTRANSFERASE 24 U/L (15-37); BILIRUBIN,DIRECT 0.4 mg/dL (0.0-0.2); BILIRUBIN,TOTAL 2.2 mg/dL (0.2-1.0); NT-PRO BNP 3993 pg/mL (0-125); TOTAL PROTEIN, SERUM 7.3 g/dL (6.4-8.2)
[2024-09-16] MEDS: ASPIRIN 325 MG TABLET PO ONE (19:30)
[2024-09-16] MEDS ORDERED: ACETAMINOPHEN 325 MG TABLET PO PRN (21:00)
[2024-09-16] MEDS ORDERED: ONDANSETRON HCL/PF 4 MG/2 ML VIAL IVP PRN (21:00)
[2024-09-16 21:13] LABS: AMPHETAMINE, URINE NEGATIVE (NEGATIVE); BARBITURATE, URINE NEGATIVE (NEGATIVE); BENZODIAZEPINE, URINE NEGATIVE (NEGATIVE); COCCAINE, URINE NEGATIVE (NEGATIVE); OPIATE, URINE NEGATIVE (NEGATIVE); PHENCYCLIDINE SCREEN,URINE NEGATIVE (NEGATIVE)
[2024-09-16 21:18] LABS: CANNABINOID, URINE POSITIVE (NEGATIVE)
[2024-09-16 21:40] VITALS: BP 148/106; TEMP 98.2; O2SAT 98
[2024-09-16] MEDS ORDERED: VALSARTAN 80 MG TABLET ONE (22:06)
[2024-09-16] MEDS: SPIRONOLACTONE 25 MG TABLET PO SCH (22:11)
[2024-09-16] MEDS: VALSARTAN 40 MG TABLET PO SCH (22:12)
[2024-09-16] MEDS: ENOXAPARIN SODIUM 40 MG/0.4 ML DISP.SYRIN SQ SCH (22:13)
[2024-09-17] VITALS: BP 137/82; TEMP 98.1; O2SAT 98
[2024-09-17 00:12] VITALS: BP 137/92; TEMP 98.1
[2024-09-17 04:00] VITALS: BP 128/87; TEMP 98; O2SAT 97
[2024-09-17 04:28] VITALS: BP 128/87; TEMP 98; O2SAT 97
[2024-09-17] MEDS: FUROSEMIDE 40 MG/4 ML VIAL IV SCH (06:22)
[2024-09-17 06:35] LABS: BASOPHILS # (AUTO) 0.1 K/uL (0.0-0.2); BASOPHILS % (AUTO) 0.6 % (0.0-2.0); EOSINOPHILS # (AUTO) 0.2 K/uL (0.0-0.7); EOSINOPHILS % (AUTO) 2.1 % (0.0-6.0); HEMATOCRIT 42 % (39-51); HEMOGLOBIN 13.9 g/dL (13.5-17.5); LYMPHOCYTES % (AUTO) 11.6 % (20.0-44.0); MEAN CORPUSCULAR HEMOGLOBIN 27 PG (26.0-33.0); MEAN CORPUSCULAR HGB CONC 33 g/dl (31.0-36.0); MEAN CORPUSCULAR VOLUME 80 fL (80-96); MONOCYTES # (AUTO) 0.6 K/uL (0.1-1.30); NEUTROPHILS # (AUTO) 6.5 K/uL (1.8-8.9); NEUTROPHILS % (AUTO) 78.7 % (43.0-81.0); PLATELET COUNT (AUTO) 147 K/uL (150-450); RED BLOOD CELL COUNT(AUTO) 5.25 MIL/uL (4.5-6.0); RED CELL DISTRIBUTION WIDTH 16.1 % (11.5-15.0); WHITE BLOOD COUNT (AUTO) 8.3 K/uL (4.3-11.0)
[2024-09-17 07:03] LABS: CALCIUM, SERUM 8.8 mg/dL (8.5-10.1); CREATININE 1.5 mg/dL (0.6-1.3); MAGNESIUM 2.5 mg/dL (1.8-2.4); PHOSPHORUS 3.9 mg/dL (2.5-4.9)
[2024-09-17 08:00] VITALS: BP 115/69; TEMP 98.1; O2SAT 93
[2024-09-17] MEDS ORDERED: FURO-144 PO (08:35)
[2024-09-17 09:32] VITALS: BP 115/69
[2024-09-17] MEDS: POTASSIUM CHLORIDE 20 MEQ TAB.PRT.SR PO SCH (09:37)
[2024-09-17] MEDS: FUROSEMIDE 40 MG TABLET PO SCH (09:37)
== END 2024-09-17 13:50 | disposition left against medical advice (07) | DRG 194 ==
LOC: ER 17:07 → TELE 20:57
PROVIDERS: ADMIT Nurse Practitioner Acute Care; ATTEND Internal Medicine
DX: I13.0 Hypertensive heart and chronic kidney disease with heart failure and stage 1 through stage 4 chronic kidney disease, or unspecified chronic kidney disease (principal); N17.0 Acute kidney failure with tubular necrosis; I21.A1 Myocardial infarction type 2; I50.23 Acute on chronic systolic (congestive) heart failure; D68.59 Other primary thrombophilia; E66.01 Morbid (severe) obesity due to excess calories; F15.10 Other stimulant abuse, uncomplicated; N18.9 Chronic kidney disease, unspecified; Z79.82 Long term (current) use of aspirin; Z91.199 Patient's noncompliance with other medical treatment and regimen due to unspecified reason; Z20.822 Contact with and (suspected) exposure to COVID-19; Z68.30 Body mass index [BMI] 30.0-30.9, adult; R73.9 Hyperglycemia, unspecified; I42.8 Other cardiomyopathies; Z53.29 Procedure and treatment not carried out because of patient's decision for other reasons; Z87.891 Personal history of nicotine dependence
CPT/HCPCS: 36415; 71045-TC; 76770-TC; 80048-TC; 80076-TC; 83735-TC; 83880; 84100-TC; 84484-TC; 85025-TC; G0378; J1650; J1940

== ENCOUNTER 2025-02-06 02:11 | Inpatient (IN) | payer OTHER, MEDICAID ==
[~2025-02-06] VITALS: Ht 175.3 cm; Wt 90.7 kg
[~2025-02-06 02:11] MED LIST changes: -ASPI-1169 PO; -EMPA10TA PO; -VALS80TA31 PO
[2025-02-06 02:12] VITALS: TEMP 98.7
[2025-02-06 02:37] LABS: PLATELET COUNT (AUTO) 144 K/uL (150-450); RED BLOOD CELL COUNT(AUTO) 4.64 MIL/uL (4.5-6.0); RED CELL DISTRIBUTION WIDTH 16.8 % (11.5-15.0); WHITE BLOOD COUNT (AUTO) 8.7 K/uL (4.3-11.0)
[2025-02-06 02:43] LABS: CALCIUM, SERUM 8.4 mg/dL (8.5-10.1); CREATININE 1.2 mg/dL (0.6-1.3); SODIUM SERUM 138 mmol/L (136-145); UREA NITROGEN, BLOOD 28 mg/dL (7-18)
[2025-02-06 02:55] LABS: ASPARTATE AMINOTRANSFERASE 40 U/L (15-37); NT-PRO BNP 3539 pg/mL (0-125); TOTAL PROTEIN, SERUM 5.9 g/dL (6.4-8.2)
[2025-02-06] MEDS ORDERED: FUROSEMIDE 40 MG/4 ML VIAL ONE (02:59)
[2025-02-06] MEDS: FUROSEMIDE 40 MG/4 ML VIAL IV ONE (03:03)
[2025-02-06] MEDS: ASPIRIN 325 MG TABLET PO ONE (04:34)
[2025-02-06] MEDS ORDERED: ENOXAPARIN SODIUM 40 MG/0.4 ML DISP.SYRIN SQ SCH (06:00)
[2025-02-06] MEDS ORDERED: MAG HYDROX/AL HYDROX/SIMETH 30 ML UDC PO PRN (06:00)
[2025-02-06] MEDS ORDERED: MAGNESIUM HYDROXIDE 30 ML UDC PO PRN (06:00)
[2025-02-06] MEDS ORDERED: Z GUARD REMEDY 4 OZ OINT TP PRN (06:00)
[2025-02-06] MEDS ORDERED: ONDANSETRON HCL/PF 4 MG/2 ML VIAL IVP PRN (06:00)
[2025-02-06] MEDS ORDERED: ACETAMINOPHEN 325 MG TABLET PO PRN (06:00)
[2025-02-06 07:01] LABS: LDL 91 mg/dL (0-99)
[2025-02-06 07:25] VITALS: BP 155/110; O2SAT 100
[2025-02-06] MEDS ORDERED: PANTOPRAZOLE 40 MG TABLET.DR PO SCH (07:30)
[2025-02-06] MEDS ORDERED: FUROSEMIDE 40 MG TABLET PO SCH (09:00)
[2025-02-06] MEDS: LOSARTAN POTASSIUM 25 MG TABLET PO SCH (09:00)
[2025-02-06] MEDS: SPIRONOLACTONE 25 MG TABLET PO SCH (09:00)
[2025-02-06] MEDS ORDERED: POTASSIUM CL. PREMIX PERIPHER. 50 ML IV SCH (12:00)
[2025-02-07] MEDS ORDERED: ASPIRIN 81 MG TAB.CHEW PO SCH (09:00)
[2025-02-07] MEDS ORDERED: FUROSEMIDE 40 MG TABLET PO SCH (09:00)
== END 2025-02-06 09:15 | disposition left against medical advice (07) | DRG 194 ==
LOC: ER 02:14 → TELE 05:45
PROVIDERS: ADMIT Registered Nurse Psychiatric/Mental Health; ATTEND Registered Nurse Psychiatric/Mental Health
DX: I50.9 Heart failure, unspecified (principal); I21.4 Non-ST elevation (NSTEMI) myocardial infarction; Z20.822 Contact with and (suspected) exposure to COVID-19
CPT/HCPCS: 36415; 71045-TC; 76700-TC; 80048-TC; 80061-TC; 80076-TC; 83880; 84484-TC; 85025-TC; 87081-TC; G0378; J1938

== ENCOUNTER 2025-02-18 03:24 | Inpatient (IN) | payer MEDICAID, OTHER ==
[~2025-02-18] VITALS: Ht 180.3 cm; Wt 88.5 kg
[2025-02-18 03:56] LABS: PLATELET COUNT (AUTO) 162 K/uL (150-450); RED BLOOD CELL COUNT(AUTO) 4.97 MIL/uL (4.5-6.0); RED CELL DISTRIBUTION WIDTH 16.3 % (11.5-15.0); WHITE BLOOD COUNT (AUTO) 9.3 K/uL (4.3-11.0)
[2025-02-18 04:14] LABS: CALCIUM, SERUM 8.6 mg/dL (8.5-10.1); NT-PRO BNP 4863 pg/mL (0-125); SODIUM SERUM 140 mmol/L (136-145); UREA NITROGEN, BLOOD 40 mg/dL (7-18)
[2025-02-18 04:20] LABS: CREATININE 1.5 mg/dL (0.6-1.3)
[2025-02-18 04:59] LABS: AMPHETAMINE, URINE NEGATIVE (NEGATIVE); BARBITURATE, URINE NEGATIVE (NEGATIVE); BENZODIAZEPINE, URINE NEGATIVE (NEGATIVE); COCCAINE, URINE NEGATIVE (NEGATIVE); OPIATE, URINE NEGATIVE (NEGATIVE)
[2025-02-18 05:02] LABS: CANNABINOID, URINE POSITIVE (NEGATIVE)
[2025-02-18] MEDS ORDERED: FUROSEMIDE 40 MG/4 ML VIAL ONE (05:06)
[2025-02-18] MEDS: FUROSEMIDE 40 MG/4 ML VIAL IV ONE (05:07)
[2025-02-18] MEDS: ASPIRIN 325 MG TABLET PO ONE (05:07)
[2025-02-18] MEDS ORDERED: ASPIRIN 325 MG TABLET ONE (05:07)
[2025-02-18] MEDS ORDERED: ONDANSETRON HCL/PF 4 MG/2 ML VIAL IVP PRN (06:30)
[2025-02-18 06:55] LABS: PHOSPHORUS 3.8 mg/dL (2.5-4.9)
[2025-02-18] MEDS ORDERED: ENOXAPARIN SODIUM 40 MG/0.4 ML DISP.SYRIN SQ ONE (08:39)
[2025-02-18] MEDS ORDERED: PANTOPRAZOLE 40 MG TABLET.DR PO ONE (08:40)
[2025-02-18] MEDS: ENOXAPARIN SODIUM 40 MG/0.4 ML DISP.SYRIN SQ SCH (08:45)
[2025-02-18] MEDS: PANTOPRAZOLE 40 MG TABLET.DR PO SCH (08:45)
[2025-02-18 09:00] VITALS: BP 144/111; TEMP 97.5; O2SAT 98
[2025-02-18] MEDS ORDERED: VALSARTAN 40 MG TABLET PO SCH (09:00)
[2025-02-18] MEDS: SPIRONOLACTONE 25 MG TABLET PO SCH (09:14)
[2025-02-18] MEDS: FUROSEMIDE 100 MG/10 ML VIAL IV SCH (09:14)
[2025-02-18 11:30] VITALS: BP 124/71; TEMP 98.1; O2SAT 96
[2025-02-18] MEDS: ACETAMINOPHEN 325 MG TABLET PO PRN (12:07)
[2025-02-18 15:49] LABS: APPEARANCE,URINE CLEAR (CLEAR); BLOOD, URINE NEGATIVE Ery/uL (NEGATIVE); LEUKOCYTE ESTERASE ,URINE NEGATIVE (NEGATIVE); NITRITE, URINE NEGATIVE (NEGATIVE); UGLUCOSE NEGATIVE (NEGATIVE)
[2025-02-18 16:00] VITALS: BP 128/97; TEMP 98.2; O2SAT 96
[2025-02-18] MEDS: METHOCARBAMOL (500MG) 500 MG TABLET PO PRN (16:43)
[2025-02-18 18:17] LABS: CALCIUM, SERUM 8.7 mg/dL (8.5-10.1); CREATININE 1.5 mg/dL (0.6-1.3); SODIUM SERUM 142.0 mmol/L (136-145); UREA NITROGEN, BLOOD 34.0 mg/dL (7-18)
[2025-02-18] MEDS: POTASSIUM CHLORIDE 20 MEQ TAB.PRT.SR PO ONE (18:35)
[2025-02-18 20:00] VITALS: BP 140/100; TEMP 98.6; O2SAT 99
[2025-02-19] VITALS: BP_SYST 133; BP_DIAS 100; BP_DIAS 105; TEMP 98.4; O2SAT 100
[2025-02-19 07:17] LABS: ASPARTATE AMINOTRANSFERASE 25.0 U/L (15-37); CALCIUM, SERUM 8.7 mg/dL (8.5-10.1); CREATININE 1.5 mg/dL (0.6-1.3); PHOSPHORUS 3.6 mg/dL (2.5-4.9); SODIUM SERUM 142.0 mmol/L (136-145); TOTAL PROTEIN, SERUM 6.6 g/dL (6.4-8.2); UREA NITROGEN, BLOOD 38.0 mg/dL (7-18)
[2025-02-19 08:00] VITALS: BP_SYST 154; BP_SYST 163; BP_DIAS 113; BP_DIAS 124; TEMP 97.7; O2SAT 96
[2025-02-19 08:03] LABS: PLATELET COUNT (AUTO) 160 K/uL (150-450); RED BLOOD CELL COUNT(AUTO) 5.52 MIL/uL (4.5-6.0); RED CELL DISTRIBUTION WIDTH 16.5 % (11.5-15.0); WHITE BLOOD COUNT (AUTO) 9.5 K/uL (4.3-11.0)
[2025-02-19] MEDS: ASPIRIN 81 MG TAB.CHEW PO SCH (08:18)
[2025-02-19] MEDS: ENOXAPARIN SODIUM 40 MG/0.4 ML DISP.SYRIN SQ SCH (08:19)
[2025-02-19] MEDS ORDERED: SPIR25TA6 PO (08:45)
[2025-02-19] MEDS ORDERED: ASPI-1169 PO (08:45)
[2025-02-19 08:58] VITALS: BP 154/113
[2025-02-19] MEDS ORDERED: FUROSEMIDE 40 MG/4 ML VIAL IV SCH (09:00)
[2025-02-19 16:00] VITALS: BP 126/83; TEMP 97.5; O2SAT 95
== END 2025-02-19 17:00 | disposition home or self-care (01) | DRG 194 ==
LOC: ER 03:25 → TELE 08:27
PROVIDERS: ADMIT Internal Medicine; ATTEND Internal Medicine
DX: I13.0 Hypertensive heart and chronic kidney disease with heart failure and stage 1 through stage 4 chronic kidney disease, or unspecified chronic kidney disease (principal); J96.01 Acute respiratory failure with hypoxia; I21.A1 Myocardial infarction type 2; I42.7 Cardiomyopathy due to drug and external agent; N18.9 Chronic kidney disease, unspecified; N17.9 Acute kidney failure, unspecified; Z91.199 Patient's noncompliance with other medical treatment and regimen due to unspecified reason; F15.188 Other stimulant abuse with other stimulant-induced disorder; Z87.891 Personal history of nicotine dependence; I50.43 Acute on chronic combined systolic (congestive) and diastolic (congestive) heart failure
CPT/HCPCS: 36415; 70160-TC; 71045-TC; 80048-TC; 80053-TC; 83735-TC; 83880; 84100-TC; 84484-TC; 85025-TC; 87081-TC; 93307-TC; G0378; J1650; J1938